=== PATIENT | male | born 1975 | race Caucasian/White ===

== ENCOUNTER 2017-06-26 06:35 | Emergency (ER) | payer MEDICAID ==
[2017-06-26] MEDS: SOD CHLORIDE 0.9% 1,000 ML IV ×2 (07:23→09:16)
[2017-06-26] MEDS: LORAZEPAM 2 MG INJ IV ×2 (07:23→09:16)
[2017-06-26 07:29] LABS: ADD MAN DIFF? NO
[2017-06-26 07:42] LABS: WHITE BLOOD COUNT 5.3 10^3/ul (4.8-10.8)
[2017-06-26 07:42] LABS: BASOPHIL # 0.1 10^3/ul (0.0-0.1); BASOPHILS % 1.1 % (0.0-2.0); EOSINOPHILS % 0.2 % (0.0-7.0); HEMATOCRIT 43.6 % (42.0-52.0); HEMOGLOBIN 15.5 g/dl (14.0-18.0); LYMPHOCYTES # 0.7 10^3/ul (0.8-2.9); LYMPHOCYTES % 13.7 % (15.0-51.0); MEAN CORPUSCULAR HEMOGLOBIN 33.2 pg (29.0-33.0); MEAN CORPUSCULAR HGB CONC 35.6 g/dl (32.0-37.0); MEAN CORPUSCULAR VOLUME 93.4 fl (82.0-101.0); MEAN PLATELET VOLUME 9.6 fl (7.4-10.4); MONOCYTE # 0.5 10^3/ul (0.3-0.9); MONOCYTES % 8.9 % (0.0-11.0); NEUTROPHILS % 75.7 % (39.0-77.0); PLATELET COUNT 251 10^3/UL (140-415); RED BLOOD COUNT 4.67 10^6/ul (4.70-6.10)
[2017-06-26 08:04] LABS: ALANINE AMINOTRANSFERASE 106 IU/L (13-69); ALBUMIN 5.1 g/dl (3.3-4.9); ALBUMIN/GLOBULIN RATIO 1.45; ALKALINE PHOSPHATASE 110 IU/L (42-121); ANION GAP 22 (8-16); ASPARTATE AMINO TRANSFERASE 186 IU/L (15-46); BLOOD UREA NITROGEN 8 mg/dl (7-20); CALCIUM 9.2 mg/dl (8.4-10.2); CARBON DIOXIDE 25 mmol/L (21-31); CHLORIDE 96 mmol/L (97-110); GLUCOSE 125 mg/dl (70-220); LIPASE 192 U/L (23-300); POTASSIUM 4.1 mmol/L (3.5-5.1); SODIUM 139 mmol/L (135-144); TOTAL PROTEIN 8.6 g/dl (6.1-8.1)
== END 2017-06-26 12:02 | disposition home or self-care (01) ==
LOC: FTE 06:35
DX: F10.230 Alcohol dependence with withdrawal, uncomplicated (principal); E86.0 Dehydration; J45.909 Unspecified asthma, uncomplicated
CPT/HCPCS: 36415; 71045; 80053; 83690; 84484; 85025; 93005; 96374; 96376; 99285-25

== ENCOUNTER 2017-07-21 09:33 | Emergency (ER) | payer SELFPAY, MEDICAID ==
[2017-07-21] MEDS: ALBUTEROL 0.083% (NEB) 2.5 MG/3 ML AMP HHN (10:20)
[2017-07-21] MEDS: predniSONE 20 MG TAB PO (10:34)
== END 2017-07-21 12:10 | disposition home or self-care (01) ==
LOC: FTE 09:33
DX: J06.9 Acute upper respiratory infection, unspecified (principal); J45.901 Unspecified asthma with (acute) exacerbation
CPT/HCPCS: 82962; 94664; 99284-25